=== PATIENT | female | born 1995 | race Caucasian/White ===

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

== ENCOUNTER 2019-05-06 11:08 | Emergency (ER) | payer OTHER ==
[2019-05-06 11:14] VITALS: BP 116/64; PULSE 100; TEMP 98.4; BMI 79.2
[2019-05-06] MEDS ORDERED: ACETAMINOPHEN 500 MG TABLET (FP) PO ONE (11:30)
[2019-05-06] MEDS ORDERED: ACETAMINOPHEN 325 MG TABLET (FP) ONE (11:54)
--- NOTE | 2019-05-06 13:24 | PDOC ---
History of Present Illness - General Chief Complaint: Headache Stated Complaint: HEADACHE/DIZZINESS Time Seen by Provider: 05/06/19 11:19 - History of Present Illness Initial Comments: 05/06/19 13:21 24-year-old female without comorbidities presents for evaluation of headache x1 month after fall about a month ago on the occipital aspect of her head. Past History - Past Medical History Allergies/Adverse Reactions: Allergies Allergy/AdvReac Type Severity Reaction Status Date / Time No Known Allergies Allergy Verified 05/06/19 11:14 Home Medications: Ambulatory Orders Metformin HCl [Glucophage] 500 mg PO WEEKLY 05/06/19 Norethindrone AC-Eth Estradiol [Junel] 1 each PO DAILY 05/06/19 Cancer: Yes (LUEKEMIA) COPD: No - Psycho Social/Smoking Cessation Hx Smoking History: Never smoked Hx Alcohol Use: Yes Drug/Substance Use Hx: No Substance Use Type: None Review of Systems - Review of Systems Constitutional: No: Fever ABD/GI: No: Nausea, Vomiting Neurological: Yes: See HPI, Headache *Physical Exam - Vital Signs Last Vital Signs Temp Pulse Resp BP Pulse Ox 98.4 F 100 H 16 116/64 98 05/06/19 11:12 05/06/19 11:12 05/06/19 11:12 05/06/19 11:12 05/06/19 11:12 - Physical Exam Comments: 05/06/19 13:22 GENERAL: The patient is awake, alert, and fully oriented, in no acute distress. HEAD: Normal with no signs of trauma. EYES: sclera anicteric, conjunctiva clear. ENT: Ears normal NECK: Normal range of motion LUNGS: Breath sounds equal, clear to auscultation bilaterally. No wheezes, and no crackles. HEART: S1 and S2 without murmur, rub or gallop. ABDOMEN: Soft, nontender, normoactive bowel sounds. No guarding, no rebound. No masses. EXTREMITIES: Normal range of motion, no edema. No clubbing or cyanosis. No cords, erythema, or tenderness. NEUROLOGICAL: Cranial nerves II through XII grossly intact. Normal speech, normal gait. PSYCH: Normal mood, normal affect. SKIN: Warm, Dry, normal turgor, no rashes or lesions noted. ED Treatment Course - ADDITIONAL ORDERS Additional order review: Laboratory Results 05/06/19 11:59 Urine HCG, Qual Negative - RADIOLOGY Radiology Studies Ordered: Category Date Time Status HEAD CT WITHOUT CONTRAST [CT] Stat CT Scan 05/06/19 12:26 Completed - Medications Given in the ED: ED Medications Discontinued Medications Generic Name Dose Route Start Last Admin Trade Name Christian PRN Reason Stop Dose Admin Acetaminophen 1,000 mg 05/06/19 11:30 05/06/19 12:00 Tylenol - PO 05/06/19 11:31 1,000 mg ONCE ONE Administration Medical Decision Making - Medical Decision Making 05/06/19 13:22 No gross neurologic deficits on exam most likely a postconcussive syndrome follow-up with neurology Tylenol for headaches Discharge - Discharge Information Problems reviewed: Yes Clinical Impression/Diagnosis: Post concussion syndrome Condition: Stable Disposition: HOME - Admission No - Follow up/Referral Referrals: Shadia Sow MD [Primary Care Provider] - Savage Vera MD [Staff Physician] - - Patient Discharge Instructions Patient Printed Discharge Instructions: Postconcussion Syndrome, DI for Postconcussion Syndrome Additional Instructions: No strenuous physical activity or sports until cleared by neurology. Please follow-up with neurology in 1 to 2 days for further evaluation and treatment options. Follow-up without fail. Tylenol and Motrin as directed for headaches. - Post Discharge Activity
== END 2019-05-06 13:46 | disposition home or self-care (01) ==
LOC: JERFT 11:08
DX: G44.309 Post-traumatic headache, unspecified, not intractable (principal); F07.81 Postconcussional syndrome; W19.XXXA Unspecified fall, initial encounter; Y93.89 Activity, other specified; Y92.89 Other specified places as the place of occurrence of the external cause; Y99.8 Other external cause status; Z85.6 Personal history of leukemia
CPT/HCPCS: 70450-TC; 84703; 99282-25

== ENCOUNTER 2023-02-21 16:08 | Emergency (ER) | payer OTHER ==
[2023-02-21 16:20] VITALS: BP 127/84; PULSE 68; RESP 18; TEMP 97.7; BMI 38.9
== END 2023-02-21 19:19 | disposition home or self-care (01) ==
LOC: JER 16:08 → JERFT 16:08
DX: S61.211A Laceration without foreign body of left index finger without damage to nail, initial encounter (principal); W26.0XXA Contact with knife, initial encounter; Y93.G3 Activity, cooking and baking
CPT/HCPCS: 99283-25

== ENCOUNTER 2024-02-28 10:06 | Emergency (ER) | payer OTHER ==
[2024-02-28 10:27] VITALS: BMI 35.4
[2024-02-28 11:17] LABS: THROAT:GRP A STREP NOT DETECTED (NOTDETECTED)
[2024-02-28] MEDS ORDERED: KETOROLAC TROMETHAMINE 30 MG/1 ML VIAL ONE (12:06)
[2024-02-28] MEDS ORDERED: DEXAMETHASONE SOD PHOSPHATE 10 MG/1 ML VIAL ONE (12:06)
[2024-02-28 12:14] LABS: BASO % 0.5 % (0-2.0); EOS % 1.4 % (0-4.5); HEMATOCRIT 44.1 % (32.4-45.2); HEMOGLOBIN 14.9 GM/dL (10.7-15.3); LYMPH % 15.5 % (8-40); MCH 26.6 pg (25.7-33.7); MCHC 33.7 g/dl (32.0-36.0); MEAN CELL VOLUME 78.9 fl (80-96); MEAN PLT VOLUME 8.3 fl (7.5-11.1); MONO % 9.1 % (3.8-10.2); NEUT % 73.5 % (42.8-82.8); PLATELET COUNT 270 10^3/uL (134-434); RBC 5.58 M/mm3 (3.60-5.2); RDW 15.6 % (11.6-15.6)
[2024-02-28] MEDS: DEXAMETHASONE SOD PHOSPHATE 20 MG/5 ML VIAL IVPB ONE (12:21)
[2024-02-28] MEDS: KETOROLAC TROMETHAMINE 30 MG/1 ML VIAL IVPUSH ONE (12:21)
[2024-02-28] MEDS: SODIUM CHLORIDE 0.9% 500 ML INFUS.BAG IV ONE (12:21)
[2024-02-28 12:34] LABS: POTASSIUM 4.3 mmol/L (3.5-5.1)
[2024-02-28 12:36] LABS: CALCIUM 9.4 mg/dL (8.5-10.1)
[2024-02-28 12:37] LABS: BLOOD UREA NITROGEN 8.3 mg/dL (7-18)
[2024-02-28 12:40] LABS: CREATININE 0.7 mg/dL (0.55-1.3)
[2024-02-28 12:41] LABS: BILIRUBIN,TOTAL 1.3 mg/dL (0.2-1); TOT PROT 8.5 g/dl (6.4-8.2)
[2024-02-28 13:46] VITALS: BP 122/73; PULSE 75; RESP 20; TEMP 97.7
[2024-02-28] MEDS ORDERED: AMOX TR/POT CLAV 875MG/125MG TABLETS (FP) ONE (13:46)
[2024-02-28] MEDS: AMOX TR/POT CLAV 875MG/125MG TABLETS (FP) PO ONE (13:48)
[2024-02-28 17:17] LABS: HIV INTERPRETATION NEGATIVE (NEGATIVE)
== END 2024-02-28 15:07 | disposition home or self-care (01) ==
LOC: JERFT 10:06
PROC: 3E033GC Introduction of Other Therapeutic Substance into Peripheral Vein, Percutaneous Approach (ICD-10-PCS; principal; 2024-02-28)
PROC: 3E0333Z Introduction of Anti-inflammatory into Peripheral Vein, Percutaneous Approach (ICD-10-PCS; 2024-02-28)
DX: J01.90 Acute sinusitis, unspecified (principal); J03.90 Acute tonsillitis, unspecified; R05.9 Cough, unspecified; M79.10 Myalgia, unspecified site; R50.9 Fever, unspecified; R51.9 Headache, unspecified; Z20.822 Contact with and (suspected) exposure to COVID-19
CPT/HCPCS: 0241U-QW; 36415; 71046-TC-FY; 80053; 84703; 85025; 86803; 87070; 87389; 87651; 99284-25

== ENCOUNTER 2024-06-14 16:53 | Emergency (ER) | payer OTHER ==
[2024-06-14 17:05] VITALS: BP 139/82; PULSE 84; RESP 18; TEMP 98.8; BMI 36.3
[2024-06-14 19:34] LABS: EOS % 4.6 % (0-4.5); HEMATOCRIT 38.6 % (32.4-45.2); HEMOGLOBIN 12.9 GM/dL (10.7-15.3); LYMPH % 29.4 % (8-40); MCH 26.9 pg (25.7-33.7); MCHC 33.5 g/dl (32.0-36.0); MEAN CELL VOLUME 80.2 fl (80-96); MEAN PLT VOLUME 8.2 fl (7.5-11.1); MONO % 10.3 % (3.8-10.2); NEUT % 54.7 % (42.8-82.8); PLATELET COUNT 221 10^3/uL (134-434); RBC 4.82 M/mm3 (3.60-5.2); RDW 14.6 % (11.6-15.6); WHITE BLOOD COUNT 6.4 K/mm3 (4.0-10.0)
[2024-06-14 19:53] LABS: POTASSIUM 3.7 mmol/L (3.5-5.1)
[2024-06-14 19:55] LABS: CALCIUM 8.9 mg/dL (8.5-10.1)
[2024-06-14 19:56] LABS: ALBUMIN 3.7 g/dl (3.4-5.0); BLOOD UREA NITROGEN 8.1 mg/dL (7-18)
[2024-06-14 19:59] LABS: CREATININE 0.6 mg/dL (0.55-1.3)
[2024-06-14 20:00] LABS: BILIRUBIN,TOTAL 0.4 mg/dL (0.2-1)
[2024-06-14 20:01] LABS: TOT PROT 7.5 g/dl (6.4-8.2)
[2024-06-14 22:41] LABS: URINE APPEARANCE CLEAR; URINE BILIRUBIN NEGATIVE (NEGATIVE); URINE COLOR YELLOW; URINE GLUCOSE (UA) NEGATIVE (NEGATIVE); URINE KETONE NEGATIVE (NEGATIVE); URINE LEUK ESTERASE NEGATIVE (NEGATIVE); URINE NITRITE NEGATIVE (NEGATIVE); URINE PROTEIN NEGATIVE (NEGATIVE); URINE UROBILINOGEN 0.2 mg/dL (0.2-1.0)
[2024-06-14 22:44] LABS: EPI CELLS 5.7 /uL (0-25.1); URINE BACTERIA 115.2 /uL (0-1359); URINE WBC 4.9 /uL (0-25.8)
== END 2024-06-15 00:38 | disposition home or self-care (01) ==
LOC: JER 16:53
DX: O20.9 Hemorrhage in early pregnancy, unspecified (principal); Z3A.01 Less than 8 weeks gestation of pregnancy
CPT/HCPCS: 36415; 76817-TC; 80053; 81003; 84702; 84703; 85025; 86850; 86900; 86901; 87086; 99284-25

== ENCOUNTER 2024-06-21 17:50 | Emergency (ER) | payer OTHER ==
[2024-06-21 18:16] VITALS: BP 118/75; PULSE 61; RESP 18; TEMP 98.8; BMI 36.3
== END 2024-06-21 22:24 | disposition home or self-care (01) ==
LOC: JER 17:50
DX: O30.041 Twin pregnancy, dichorionic/diamniotic, first trimester (principal); Z3A.01 Less than 8 weeks gestation of pregnancy
CPT/HCPCS: 36415; 76817-TC; 84702; 99284-25

== ENCOUNTER 2024-11-20 13:07 | Emergency (ER) | payer OTHER ==
[2024-11-20 13:17] VITALS: BP 114/71; PULSE 84; RESP 20; TEMP 97.8; BMI 38.0
[2024-11-20] MEDS ORDERED: ACETAMINOPHEN 500 MG TABLET (FP) ONE (13:53)
[2024-11-20] MEDS: ACETAMINOPHEN 500 MG TABLET (FP) PO ONE (14:03)
[2024-11-20 14:44] LABS: THROAT:GRP A STREP NOT DETECTED (NOTDETECTED)
== END 2024-11-20 14:59 | disposition home or self-care (01) ==
LOC: JERFT 13:07
DX: O99.513 Diseases of the respiratory system complicating pregnancy, third trimester (principal); J06.9 Acute upper respiratory infection, unspecified; O99.891 Other specified diseases and conditions complicating pregnancy; R51.9 Headache, unspecified; R09.81 Nasal congestion; R68.83 Chills (without fever); R63.0 Anorexia; Z3A.28 28 weeks gestation of pregnancy
CPT/HCPCS: 0241U-QW; 87651; 99283-25